=== PATIENT | female | born 1945 | race Caucasian/White ===

== ENCOUNTER 2018-05-13 11:22 | Outpatient (CLI) | payer MEDICARE, BC | END 2018-05-13 11:23 | disposition home or self-care (01) | LOC: LAB.F 11:22 | PROVIDERS: ATTEND Internal Medicine | DX: E03.9 Hypothyroidism, unspecified (principal); E61.8 Deficiency of other specified nutrient elements; E06.3 Autoimmune thyroiditis | CPT/HCPCS: 36415; 81599; 82542; 84443; 86376 ==

== ENCOUNTER 2018-06-23 08:57 | Day surgery (SDC) | payer MEDICARE, BC ==
[2018-06-23] MEDS ORDERED: LACTATED RINGERS 1,000 ML IV ONE (09:42)
[2018-06-23] MEDS ORDERED: fentaNYL 100 MCG/2 ML VIAL IVP ONE (10:09)
[2018-06-23] MEDS ORDERED: MIDAZOLAM 2 MG/2 ML VIAL IVP ONE (10:09)
[2018-06-23 11:17] VITALS: BP 162/63
== END 2018-06-23 08:58 | disposition home or self-care (01) ==
LOC: SDS 08:57
PROVIDERS: ATTEND Surgery
PROC: 0DJD8ZZ Inspection of Lower Intestinal Tract, Via Natural or Artificial Opening Endoscopic (ICD-10-PCS; principal; 2018-06-23 10:30)
DX: Z12.11 Encounter for screening for malignant neoplasm of colon (principal); K57.30 Diverticulosis of large intestine without perforation or abscess without bleeding; I10 Essential (primary) hypertension; E03.9 Hypothyroidism, unspecified; K64.8 Other hemorrhoids; Z80.0 Family history of malignant neoplasm of digestive organs; Z86.010 Personal history of colon polyps; Z72.89 Other problems related to lifestyle; Z96.649 Presence of unspecified artificial hip joint
CPT/HCPCS: G0105; J7120

== ENCOUNTER 2019-05-28 14:40 | Outpatient (CLI) | payer MEDICARE, BC | END 2019-05-28 14:41 | disposition home or self-care (01) | LOC: RT 14:40 | PROVIDERS: ATTEND Internal Medicine Cardiovascular Disease | DX: R07.9 Chest pain, unspecified (principal) | CPT/HCPCS: 93005 ==

== ENCOUNTER 2019-06-05 08:36 | Outpatient (CLI) | payer MEDICARE, BC ==
[2019-06-05 18:04] LABS: CHOL/HDL RATIO 3.7 (<4.4); CHOLESTEROL 193 mg/dL; HDL CHOLESTEROL 52 mg/dL; LDL CHOLESTEROL,CALCULATED 124 mg/dL; LDL/HDL RATIO 2.4 (<4.4); VLDL CHOLESTEROL 17 mg/dL
== END 2019-06-05 08:37 | disposition home or self-care (01) ==
LOC: LAB.S 08:36
PROVIDERS: ATTEND Internal Medicine
DX: E03.9 Hypothyroidism, unspecified (principal)
CPT/HCPCS: 36415; 80061; 83721; 84443

== ENCOUNTER 2019-06-22 10:13 | Outpatient (CLI) | payer MEDICARE, BC ==
[2019-06-24 13:00] LABS: DHEA SULFATE 51 mcg/dL (7-177)
== END 2019-06-22 10:14 | disposition home or self-care (01) ==
LOC: LAB.S 10:13
PROVIDERS: ATTEND Family Medicine
DX: E55.9 Vitamin D deficiency, unspecified (principal); E06.3 Autoimmune thyroiditis; E27.40 Unspecified adrenocortical insufficiency
CPT/HCPCS: 36415; 81599; 82306; 82542; 82627; 84439; 84481; 86376; 86800

== ENCOUNTER 2020-01-20 11:10 | Outpatient (CLI) | payer MEDICARE, BC ==
[2020-01-20 15:13] LABS: BASOPHILS % (AUTO) 0.6 %; EOSINOPHILS # (AUTO) 0.3 10^3/uL (0.0-0.7); EOSINOPHILS % (AUTO) 4.1 %; HGB - HEMOGLOBIN 13.3 g/dL (12.0-16.0); LYMPHOCYTES # (AUTO) 1.9 10^3/uL (1.5-3.5); LYMPHOCYTES % (AUTO) 29.1 %; MEAN CORPUSCULAR HEMOGLOBIN 28.2 pg (27.0-31.0); MEAN CORPUSCULAR HGB CONC 31.3 g/dL (32.0-36.0); MEAN PLATELET VOLUME 11.7 fL (7.9-10.8); MONOCYTES # (AUTO) 0.4 10^3/uL (0.0-1.0); MONOCYTES % (AUTO) 6.6 %; NEUTROPHILS # (AUTO) 3.9 10^3/uL (1.5-6.6); NEUTROPHILS % (AUTO) 59.3 %; PLT - PLATELET COUNT 193 10^3/uL (130-450); RED BLOOD COUNT 4.72 10^6/uL (4.20-5.40); RED CELL DISTRIBUTION WIDTH 13.9 % (12.0-15.0); WHITE BLOOD COUNT 6.5 x10^3/uL (4.8-10.8)
[2020-01-20 15:53] LABS: FREE T3 4.45 pg/mL (2.5-3.9)
[2020-01-20 15:55] LABS: FREE T4 (FREE THYROXINE) 0.76 ng/dL (0.58-1.64)
== END 2020-01-20 11:11 | disposition home or self-care (01) ==
LOC: LAB.S 11:10
PROVIDERS: ATTEND Family Medicine
DX: E06.3 Autoimmune thyroiditis (principal)
CPT/HCPCS: 36415; 84439; 84481; 85025; 86376; 86800

== ENCOUNTER 2022-08-20 07:00 | Outpatient (CLI) | payer MEDICARE, BC ==
--- NOTE | 2022-08-21 07:53 | XRAY Report ---
PROCEDURE: Hip w/Pelvis 2-3V RT INDICATIONS: RIGHT HIP PAIN TECHNIQUE: AP pelvis with lateral view(s) of the right hip(s). COMPARISON: None. FINDINGS: Bones: No fractures or dislocations. Pelvic ring appears intact. No suspicious bony lesions. Mode rate right hip joint degeneration and mild bilateral sacroiliac joint degeneration. Note is made of l eft hip arthroplasty. Soft tissues: The visualized bowel gas pattern is normal. No suspicious soft tissue calcifications. IMPRESSION: 1. Moderate degenerative joint disease. 2. Left hip arthroplasty. Reviewed by: Vero Lundberg MD on 08/21/2022 7:51 AM PST Approved by: Vero Lundberg MD on 08/21/2022 7:51 AM PST Station ID: [id number]
== END 2022-08-20 23:59 | disposition home or self-care (01) ==
LOC: DI.S 07:00
PROVIDERS: ATTEND Family Medicine
DX: M16.11 Unilateral primary osteoarthritis, right hip (principal); Z96.641 Presence of right artificial hip joint